=== PATIENT | male | born 1960 | race Caucasian/White ===

== ENCOUNTER 2017-04-13 09:40 | Emergency (ER) | payer OTHER ==
[~2017-04-13] VITALS: Ht 167.6 cm; Wt 93.0 kg
[2017-04-13] MEDS ORDERED: SODIUM CHLORIDE FLUSH 10ML SYR IVF ONE (10:30)
[2017-04-13] MEDS ORDERED: hydrALAzine 20 MG/ML, 1ML ONE (10:39)
[2017-04-13 10:41] LABS: BLOOD UREA NITROGEN 12 mg/dL (7-18)
[2017-04-13 10:45] LABS: IS PT STATUS REG ER OR PRE ER? YES
[2017-04-13] MEDS ORDERED: hydrALAzine 20 MG/ML, 1ML IV ONE (11:00)
[2017-04-13] MEDS ORDERED: OMNIPAQUE 350 MG/ML, 100ML BOTTLE ONE (11:42)
[2017-04-13 13:00] VITALS: BP 153/83
== END 2017-04-13 13:02 | disposition home or self-care (01) ==
LOC: ED 10:30
DX: I10 Essential (primary) hypertension (principal); F17.210 Nicotine dependence, cigarettes, uncomplicated; Z87.891 Personal history of nicotine dependence
CPT/HCPCS: 36415; 71010; 74175; 80048; 82040; 83880; 84484; 85025; 93005; 96374; 99285; J0360; Q9967

== ENCOUNTER → 2017-05-20 | Outpatient (CLI) | payer OTHER ==
[~2017-05-20] MED LIST: HYDR25TA6 PO; IBUP-1222 PO; IPRA3AMP INH; LISI1TAB5 PO; METH500T7 PO; NADO40TA PO; ROSU5TAB PO; TRAN2TAB2 PO
== END | disposition home or self-care (01) ==
LOC: RAD 10:49
PROVIDERS: ATTEND Nurse Practitioner Family
DX: N20.0 Calculus of kidney (principal); I16.9 Hypertensive crisis, unspecified
CPT/HCPCS: 76770; 93306